=== PATIENT | female | born 1935 | race Caucasian/White ===

== ENCOUNTER 2022-10-03 22:55 | Observation (INO) ==
[2022-10-04 02:40] LABS: ABS Basophils 0.1 10^3/uL (0.0-0.1); ABS Lymphocytes 0.8 10^3/uL (1.0-4.8); ABS Monocytes 0.2 10^3/uL (0.0-0.9); ABS Neutrophils 9.3 10^3/uL (1.5-7.6); Hematocrit 37.4 % (35-45); Lymphocyte % 7.7 %; Mean Corpuscular Hemoglobin 30.2 pg (27-33); Mean Corpuscular Hgb Conc 34.6 g/dL (31-36); Mean Corpuscular Volume 87.4 fL (80-97); Mean Platelet Volume 8.2 fL (7.5-11.2); Platelet Count 242 10^3/uL (150-450); Red Blood Count 4.28 10^6/uL (3.63-4.92); Red Cell Distribution Width 13.2 % (12-17); White Blood Count 10.4 10^3/uL (3.8-11.8)
[2022-10-04 02:57] LABS: Albumin 4.4 g/dL (3.2-5.2); Albumin/Globulin Ratio 1.5 (1-3); C Reactive Protein 1.55 mg/L (<8.01); Calcium 9.4 mg/dL (8.6-10.3); Creatinine, Serum 1.37 mg/dL (0.51-0.95); Potassium 4.6 mmol/L (3.5-5.0); Total Bilirubin 0.5 mg/dL (0.2-1.0); Total Protein 7.4 g/dL (6.4-8.9); eGFR CKD-EPI 37.8 (>60)
[2022-10-04] MEDS ORDERED: NS 0.9% 1000 ml BAG 1,000 ML IV ONE (07:33)
[2022-10-04 13:16] LABS: Urine Appearance Cloudy; Urine Bilirubin Negative (Negative); Urine Blood 1+ (Negative); Urine Color Straw; Urine Glucose 1+(50 mg/dL) (Negative); Urine Ketones Negative (Negative); Urine Nitrite Negative (Negative); Urine Protein Negative (Negative); Urine Specific Gravity 1.015 (1.002-1.030); Urine Urobilinogen Negative (Negative)
[2022-10-04 13:17] LABS: Urine Bacteria Absent (Absent); Urine Red Blood Cell 3+(>10/hpf) (Absent); Urine Squamous Epithelial Cell Present (Absent); Urine White Blood Cell Trace(0-5/hpf) (Absent)
[2022-10-04] MEDS ORDERED: cefTRIAXone 1 gm/50 mL D5W 1 GM/50 ML BAG IV SCH (16:45)
[2022-10-04] MEDS: NS 0.9% 1000 ml BAG 1,000 ML IV SCH (17:44)
[2022-10-04] MEDS ORDERED: HYDROmorphone 0.5 MG/0.5 ML SYRINGE IV SLOW PU PRN (21:59)
[2022-10-04] MEDS ORDERED: Heparin 5000 UNITS/ML 1 mL VIAL SUBCUT SCH (22:00)
[2022-10-05] MEDS: NS 0.9% 1000 ml BAG 1,000 ML IV SCH (03:45)
[2022-10-05 05:44] LABS: ABS Lymphocytes 1.3 10^3/uL (1.0-4.8); ABS Monocytes 0.7 10^3/uL (0.0-0.9); ABS Neutrophils 8.1 10^3/uL (1.5-7.6); Eosinophil % 0.1 %; Hematocrit 35.5 % (35-45); Hemoglobin 12.3 g/dL (11.5-14.3); Lymphocyte % 12.9 %; Mean Corpuscular Hemoglobin 31.2 pg (27-33); Mean Corpuscular Hgb Conc 34.5 g/dL (31-36); Mean Corpuscular Volume 90.3 fL (80-97); Mean Platelet Volume 7.9 fL (7.5-11.2); Platelet Count 222 10^3/uL (150-450); Red Blood Count 3.93 10^6/uL (3.63-4.92); Red Cell Distribution Width 13.4 % (12-17); White Blood Count 10.2 10^3/uL (3.8-11.8)
[2022-10-05 06:04] LABS: Calcium 8.8 mg/dL (8.6-10.3); Creatinine, Serum 1.31 mg/dL (0.51-0.95); Potassium 4.4 mmol/L (3.5-5.0); eGFR CKD-EPI 39.9 (>60)
[2022-10-05] MEDS ORDERED: Naloxone 0.4 mg VIAL 0.4 mg/ml 1 ml VIAL IV PRN (08:14)
[2022-10-05] MEDS ORDERED: HYDROmorphone 1 MG/1 ML SYRINGE IV PRN (08:14)
[2022-10-05] MEDS ORDERED: fentaNYL 100 mcg/2 ml 50 MCG/ML VIAL IV PRN (08:14)
[2022-10-05] MEDS ORDERED: Ondansetron 4 mg VIAL 2 MG/ML 2 ml VIAL IV PRN (08:14)
[2022-10-05] MEDS ORDERED: Lactated Ringers 1000 ml BAG 1,000 ML IV SCH (09:00)
[2022-10-05] MEDS ORDERED: Iohexol 180 (CONTRAST) 10 ML SDV IV ONE (10:35)
[2022-10-05] MEDS ORDERED: Ondansetron 4 mg VIAL 2 MG/ML 2 ml VIAL ONE (10:42)
[2022-10-05] MEDS ORDERED: Dexamethasone IV 4 MG/ML VIAL 1 ml VIAL ONE (10:42)
[2022-10-05] MEDS ORDERED: Lidocaine 2% PF 5 ML VIAL ONE (10:42)
[2022-10-05] MEDS ORDERED: fentaNYL 100 mcg/2 ml 50 MCG/ML VIAL ONE (10:42)
[2022-10-05] MEDS ORDERED: Propofol 10 MG/ML 20 ML BTL ONE (10:42)
[2022-10-05] MEDS ORDERED: cefTRIAXone VIAL 1,000 MG VIAL ONE (11:37)
[2022-10-05] MEDS ORDERED: Acetaminophen IV 1 GM/100ML 1,000 MG/100 ML BAG IV ONE (11:52)
[2022-10-05 14:27] VITALS: BP 174/62
== END 2022-10-05 14:28 | disposition home or self-care (01) ==
LOC: ED 22:55 → EDHOLD 22:55 → MED 10-04 21:18
PROVIDERS: ADMIT Internal Medicine; ATTEND Internal Medicine

== ENCOUNTER 2022-12-22 09:12 | Inpatient (IN) ==
[2022-12-22 09:48] LABS: ABS Lymphocytes 0.3 10^3/uL (1.0-4.8); ABS Monocytes 0.7 10^3/uL (0.0-0.9); ABS Neutrophils 14.1 10^3/uL (1.5-7.6); ABS Nucleated RBC 0.01 10^3/ul; Hemoglobin 12.6 g/dL (11.5-14.3); Lymphocyte % 1.9 %; Mean Corpuscular Hemoglobin 29.3 pg (27-33); Mean Corpuscular Hgb Conc 33.9 g/dL (31-36); Mean Corpuscular Volume 86.2 fL (80-97); Mean Platelet Volume 8.3 fL (7.5-11.2); Nucleated Red Blood Cells % 0.1 %/100WBC (0.0-0.8); Platelet Count 206 10^3/uL (150-450); Red Blood Count 4.29 10^6/uL (3.63-4.92); Red Cell Distribution Width 13.8 % (12-17); White Blood Count 15.2 10^3/uL (3.8-11.8)
[2022-12-22 09:54] LABS: INR 1.18 (0.83-1.13)
[2022-12-22 10:06] LABS: C Reactive Protein 284.93 mg/L (<8.01); Calcium 9.6 mg/dL (8.6-10.3); Creatinine, Serum 2.32 mg/dL (0.51-0.95); Potassium 3.3 mmol/L (3.5-5.0); eGFR CKD-EPI 20.1 (>60)
[2022-12-22 10:08] LABS: Albumin/Globulin Ratio 1.2 (1-3); Globulin 3.3 g/dL (2-4); Magnesium 1.8 mg/dL (1.9-2.7); Total Bilirubin 1.5 mg/dL (0.2-1.0); Total Protein 7.3 g/dL (6.4-8.9)
[2022-12-22] MEDS ORDERED: Lactated Ringers 1000 ml BAG 1,000 ML IV ONE ×3 (10:10→15:15)
[2022-12-22 11:56] LABS: Urine Appearance Cloudy; Urine Bilirubin Negative (Negative); Urine Blood 3+ (Negative); Urine Color Yellow; Urine Glucose Negative (Negative); Urine Ketones Trace (Negative); Urine Nitrite Negative (Negative); Urine Protein 2+(100 mg/dL) (Negative); Urine Specific Gravity 1.018 (1.002-1.030); Urine Urobilinogen Negative (Negative)
[2022-12-22 12:07] LABS: Urine Bacteria Absent (Absent); Urine Granular Casts Present (Absent); Urine Red Blood Cell 1+(3-5/hpf) (Absent); Urine White Blood Cell 2+(11-20/hpf) (Absent)
[2022-12-22 12:54] LABS: High Sensitivity Troponin 1 Hr 130 pg/mL (<15)
[2022-12-22] MEDS ORDERED: cefTRIAXone 2 gm/50 mL D5W 2 GM/50 ML BAG IV ONE (12:57)
[2022-12-22] MEDS ORDERED: Iohexol 180 (CONTRAST) 10 ML SDV IV ONE (13:55)
[2022-12-22] MEDS ORDERED: Ondansetron 4 mg VIAL 2 MG/ML 2 ml VIAL ONE (14:04)
[2022-12-22] MEDS ORDERED: Lidocaine 2% PF 5 ML VIAL ONE (14:04)
[2022-12-22] MEDS ORDERED: Dexamethasone IV 4 MG/ML VIAL 1 ml VIAL ONE (14:04)
[2022-12-22] MEDS ORDERED: Propofol 10 MG/ML 20 ML BTL ONE (14:04)
[2022-12-22] MEDS ORDERED: fentaNYL 100 mcg/2 ml 50 MCG/ML VIAL ONE (14:05)
[2022-12-22] MEDS ORDERED: Phenylephrine 40 mcg/mL 10mL (400mcg) SYRINGE ONE ×2 (14:51)
[2022-12-22] MEDS ORDERED: hydrALAZINE 20 mg/ml 1 ML Vial IV IV SLOW PU PRN (15:51)
[2022-12-22] MEDS ORDERED: hydrALAZINE 20 mg/ml 1 ML Vial IV ONE (15:54)
[2022-12-22] MEDS ORDERED: Remdesivir 100 mg Vial 200 MG in NS 0.9% 250 ml 210 ML IV ONE (17:00)
[2022-12-22] MEDS: Lactated Ringers 1000 ml BAG 1,000 ML IV SCH (19:34)
[2022-12-22 21:09] LABS: Calcium 8.5 mg/dL (8.6-10.3); Creatinine, Serum 1.7 mg/dL (0.51-0.95); Potassium 3.7 mmol/L (3.5-5.0); eGFR CKD-EPI 29.2 (>60)
[2022-12-22 21:14] LABS: Magnesium 1.7 mg/dL (1.9-2.7)
[2022-12-23] MEDS: Lactated Ringers 1000 ml BAG 1,000 ML IV SCH (04:00)
[2022-12-23 06:33] LABS: ABS Lymphocytes 0.5 10^3/uL (1.0-4.8); ABS Monocytes 0.6 10^3/uL (0.0-0.9); ABS Neutrophils 10.4 10^3/uL (1.5-7.6); Hematocrit 30.2 % (35-45); Hemoglobin 10.4 g/dL (11.5-14.3); Lymphocyte % 4.4 %; Mean Corpuscular Hemoglobin 29.5 pg (27-33); Mean Corpuscular Hgb Conc 34.4 g/dL (31-36); Mean Corpuscular Volume 85.9 fL (80-97); Mean Platelet Volume 8.3 fL (7.5-11.2); Platelet Count 151 10^3/uL (150-450); Red Blood Count 3.52 10^6/uL (3.63-4.92); Red Cell Distribution Width 13.8 % (12-17); White Blood Count 11.5 10^3/uL (3.8-11.8)
[2022-12-23 06:55] LABS: Albumin/Globulin Ratio 1.2 (1-3); Calcium 8.4 mg/dL (8.6-10.3); Creatinine, Serum 1.58 mg/dL (0.51-0.95); Globulin 2.6 g/dL (2-4); Potassium 3.9 mmol/L (3.5-5.0); Total Bilirubin 0.5 mg/dL (0.2-1.0); Total Protein 5.6 g/dL (6.4-8.9); eGFR CKD-EPI 31.9 (>60)
[2022-12-23] MEDS ORDERED: Influenza vaccine *QUAD* *2023-24* 0.5 ML SYRINGE IM ONE (09:00)
[2022-12-23] MEDS: Enoxaparin 30 MG/0.3 ML SYR SUBCUT SCH (14:38)
[2022-12-23] MEDS: cefTRIAXone 1 gm/50 mL D5W 1 GM/50 ML BAG IV SCH (15:02)
[2022-12-23] MEDS ORDERED: Lactated Ringers 1000 ml BAG 1,000 ML IV SCH (18:00)
[2022-12-24] MEDS ORDERED: Caspofungin(NF) 70 MG in NS 0.9% 250 ml 250 ML IV ONE (03:02)
[2022-12-24 07:06] LABS: Hematocrit 30.2 % (35-45); Hemoglobin 10.5 g/dL (11.5-14.3); Mean Corpuscular Hemoglobin 30.3 pg (27-33); Mean Corpuscular Hgb Conc 34.6 g/dL (31-36); Mean Corpuscular Volume 87.3 fL (80-97); Mean Platelet Volume 8.6 fL (7.5-11.2); Platelet Count 155 10^3/uL (150-450); Red Blood Count 3.46 10^6/uL (3.63-4.92); Red Cell Distribution Width 13.7 % (12-17); White Blood Count 8.5 10^3/uL (3.8-11.8)
[2022-12-24 07:26] LABS: Calcium 8.5 mg/dL (8.6-10.3); Creatinine, Serum 1.18 mg/dL (0.51-0.95); Potassium 3.7 mmol/L (3.5-5.0); eGFR CKD-EPI 45.3 (>60)
[2022-12-24] MEDS: Anidulafungin 200 MG in NS 0.9% 200 ML IVPB ONE ×2 (11:41→16:48)
[2022-12-24] MEDS: Enoxaparin 30 MG/0.3 ML SYR SUBCUT SCH (14:52)
[2022-12-24] MEDS: Senna TAB 8.6 mg TAB PO PRN (14:53)
[2022-12-24] MEDS: cefTRIAXone 1 gm/50 mL D5W 1 GM/50 ML BAG IV SCH (15:09)
[2022-12-24] MEDS: Polyethylene Glycol 3350 17 GM PACKET PO SCH (21:35)
[2022-12-25] MEDS: Polyethylene Glycol 3350 17 GM PACKET PO SCH ×2 (08:04→22:34)
[2022-12-25 08:22] LABS: Calcium 8.3 mg/dL (8.6-10.3); Creatinine, Serum 1.04 mg/dL (0.51-0.95); Potassium 3.7 mmol/L (3.5-5.0); eGFR CKD-EPI 52.7 (>60)
[2022-12-25 08:28] LABS: ABS Eosinophils 0.2 10^3/uL (0.0-0.5); ABS Lymphocytes 1.3 10^3/uL (1.0-4.8); ABS Neutrophils 8.7 10^3/uL (1.5-7.6); ABS Nucleated RBC 0.01 10^3/ul; Eosinophil % 2.1 %; Hematocrit 32.8 % (35-45); Hemoglobin 10.9 g/dL (11.5-14.3); Lymphocyte % 11.7 %; Mean Corpuscular Hgb Conc 33.3 g/dL (31-36); Mean Corpuscular Volume 90.1 fL (80-97); Mean Platelet Volume 8.5 fL (7.5-11.2); Nucleated Red Blood Cells % 0.1 %/100WBC (0.0-0.8); Platelet Count 153 10^3/uL (150-450); Red Blood Count 3.63 10^6/uL (3.63-4.92); Red Cell Distribution Width 13.8 % (12-17); White Blood Count 10.8 10^3/uL (3.8-11.8)
[2022-12-25 08:31] LABS: RBC Morphology Normal (Normal)
[2022-12-25] MEDS ORDERED: Sulfur Hexaflouride MICROSPHR 25 MG VIAL ONE (13:33)
[2022-12-25] MEDS: Enoxaparin 30 MG/0.3 ML SYR SUBCUT SCH (14:26)
[2022-12-25] MEDS: cefTRIAXone 1 gm/50 mL D5W 1 GM/50 ML BAG IV SCH (14:27)
[2022-12-25] MEDS: Senna TAB 8.6 mg TAB PO PRN (14:37)
[2022-12-25] MEDS ORDERED: Magnesium Hydroxide LIQ 30 ML UDC PO PRN (16:12)
[2022-12-25] MEDS: Anidulafungin 100 MG in NS 0.9% 100 ML IVPB SCH (16:58)
[2022-12-26 06:45] LABS: Mean Corpuscular Hemoglobin 29.7 pg (27-33); Mean Corpuscular Hgb Conc 34.6 g/dL (31-36); Mean Corpuscular Volume 85.8 fL (80-97); Mean Platelet Volume 7.6 fL (7.5-11.2); Platelet Count 181 10^3/uL (150-450); Red Blood Count 3.38 10^6/uL (3.63-4.92); Red Cell Distribution Width 13.5 % (12-17); White Blood Count 7.9 10^3/uL (3.8-11.8)
[2022-12-26 07:14] LABS: Calcium 8.3 mg/dL (8.6-10.3); Creatinine, Serum 0.83 mg/dL (0.51-0.95)
[2022-12-26 07:28] LABS: ABS Eosinophils 0.3 10^3/uL (0.0-0.5); ABS Lymphocytes 1.5 10^3/uL (1.0-4.8); ABS Monocytes 0.8 10^3/uL (0.0-0.9); ABS Neutrophils 5.2 10^3/uL (1.5-7.6); ABS Nucleated RBC 0.01 10^3/ul; Eosinophil % 4.4 %; Lymphocyte % 19.1 %; Nucleated Red Blood Cells % 0.1 %/100WBC (0.0-0.8)
[2022-12-26] MEDS: Polyethylene Glycol 3350 17 GM PACKET PO SCH ×2 (08:37→20:07)
[2022-12-26] MEDS: cefTRIAXone 1 gm/50 mL D5W 1 GM/50 ML BAG IV SCH (14:47)
[2022-12-26] MEDS: Enoxaparin 30 MG/0.3 ML SYR SUBCUT SCH (14:48)
[2022-12-26] MEDS: Anidulafungin 100 MG in NS 0.9% 100 ML IVPB SCH (18:13)
[2022-12-27 08:06] LABS: Hemoglobin 10.5 g/dL (11.5-14.3); Mean Corpuscular Hemoglobin 29.6 pg (27-33); Mean Corpuscular Hgb Conc 33.9 g/dL (31-36); Mean Corpuscular Volume 87.2 fL (80-97); Mean Platelet Volume 7.9 fL (7.5-11.2); Platelet Count 257 10^3/uL (150-450); Red Blood Count 3.56 10^6/uL (3.63-4.92); White Blood Count 8.1 10^3/uL (3.8-11.8)
[2022-12-27 08:59] LABS: ABS Eosinophils 0.3 10^3/uL (0.0-0.5); ABS Lymphocytes 2.2 10^3/uL (1.0-4.8); ABS Neutrophils 4.5 10^3/uL (1.5-7.6); ABS Nucleated RBC 0.01 10^3/ul; Eosinophil % 3.9 %; Lymphocyte % 27.3 %; Nucleated Red Blood Cells % 0.1 %/100WBC (0.0-0.8); Polychromasia 1+
[2022-12-27 09:15] LABS: Calcium 8.3 mg/dL (8.6-10.3); Creatinine, Serum 0.86 mg/dL (0.51-0.95); Potassium 3.1 mmol/L (3.5-5.0); eGFR CKD-EPI 66.2 (>60)
[2022-12-27] MEDS ORDERED: KCL 20 MEQ/100 ML IVPREMIX 20 MEQ/100 ML BAG IV SCH (09:30)
[2022-12-27] MEDS ORDERED: Potassium Chlor 20 meq TAB.ER PO ONE (10:42)
[2022-12-27] MEDS: Polyethylene Glycol 3350 17 GM PACKET PO SCH ×2 (11:33→22:02)
[2022-12-27] MEDS: Enoxaparin 30 MG/0.3 ML SYR SUBCUT SCH (14:01)
[2022-12-27] MEDS: Anidulafungin 100 MG in NS 0.9% 100 ML IVPB SCH (16:47)
[2022-12-28 06:26] LABS: Calcium 8.7 mg/dL (8.6-10.3); Creatinine, Serum 0.71 mg/dL (0.51-0.95); Potassium 3.7 mmol/L (3.5-5.0); eGFR CKD-EPI 83.3 (>60)
[2022-12-28] MEDS ORDERED: Potassium Chlor 20 meq TAB.ER PO ONE (07:34)
[2022-12-28] MEDS: Polyethylene Glycol 3350 17 GM PACKET PO SCH (11:13)
[2022-12-28 14:02] VITALS: BP 180/83
== END 2022-12-28 16:00 | disposition home or self-care (01) | DRG 853 ==
LOC: ED 09:12 → EDHOLD 13:42 → SUATTDRO 13:42 → EDHOLD 14:14 → AA 15:37 → MED 17:29
PROVIDERS: ADMIT Internal Medicine; ATTEND Hospitalist